=== PATIENT | male | born 1960 | race Caucasian/White ===

== ENCOUNTER 2017-07-13 19:45 | Emergency (ER) | payer BC, SELFPAY ==
[2017-07-13 20:02] VITALS: BP 145/86; PULSE 87; RESP 20; TEMP 37; O2SAT 98; BMI 36.6
--- NOTE | 2017-07-13 20:08 | XR_ITS ---
XR hand LT min 3V COMPARISON: None HISTORY: Left hand pain after injury TECHNIQUE: AP lateral and oblique views FINDINGS: The carpal bones metacarpals and phalanges appear intact with no evidence of recent or old fracture. There is mild generalized soft tissue swelling of the hand. There are no foreign bodies. IMPRESSION: Soft tissue swelling, no fracture seen
--- NOTE | 2017-07-13 20:28 | HMH.EDUTC ---
[facility] [place] Disposition Clinical Impression: Contusion of left hand Qualifiers: Encounter type: initial encounter Qualified Code(s): S60.222A - Contusion of left hand, initial encounter Disposition: Home, Self-Care Condition on Discharge: Good Instructions: DI for Contusion Additional Instructions: Ice, rest, anti-inflammatories Time of Disposition: 20:39 Medical Decision Making - Jadiel Inquiry Pt receiving controlled substance: No Vital Signs: 07/13/17 20:02 07/13/17 20:29 Temperature 98.6 F 98.6 F Temperature Source Tympanic Temporal Artery Scan Pulse Rate [Right Radial] 87 68 Respiratory Rate 20 20 Blood Pressure [Right Arm] 145/86 126/82 Blood Pressure Mean [Right Arm] 105 96 Blood Pressure Position [Right Arm] Sitting 02 Sat by Pulse Oximetry 98 95 Oxygen Delivery Method Room Air Orders (Tests/Meds): ORDERS Category Date Time Status XR hand LT min 3V Stat Exams 07/13/17 20:08 Taken - Radiology Data #1 Image(s): Hand Image Reviewed: Yes I reviewed the patient's radiology image Preliminary Findings: No Fracture Seen [facility] [place] HPI - General Stated complaint: AO 07/13/17 1900, inj to left hand Time Seen by Provider: 07/13/17 20:28 Mode of Arrival: Family Vehicle Source of Information: Patient Limitations: No Limitations Description of Symptoms (Recalled from Triage Doc. by RN): LEFT HAND INJURY AND ABRASION AFTER SMASHING HAND IN A CORN PLANTER. - History of Present Illness Provider Complaint: Patient smashed left hand between corn planter and trailer about 1 hour prior to arrival. Pain is most prominent at 3rd and 4th MCP joints. Has a small abrasion at the 3rd MCP joint. He is UTD on tetanus. Onset (ago): hour(s) (1) Location: left, upper extremity Relieving factors: none Exacerbating factors: none Associated symptoms: denies other symptoms Treatments prior to arrival: none - Related Data Home Medications Medication Instructions Recorded Confirmed Amlodipine Besylate [Amlodipine 10 mg PO DAILY 07/13/17 07/13/17 10mg Tab] Allergies Allergy/AdvReac Type Severity Reaction Status Date / Time No Known Drug Allergies Allergy Unknown Unverified 03/28/17 15:28 [NKDA] [facility] History I have reviewed the patient's past medical history: Yes ROS Obtained: Yes All systems reviewed & no additional complaints - Musculoskeletal Musculoskeletal: Reports as per HPI Physical Exam - General General appearance: alert, in no apparent distress - Head Head exam: atraumatic, normocephalic - Eye Eye exam: Present: PERRL - Respiratory Respiratory exam: Present: normal lung sounds bilaterally, respiratory distress - Cardiovascular Cardiovascular exam: Present: regular rate, normal rhythm - Expanded Upper Extremity Exam Left Hand exam: Present: tenderness (3rd & 4th MCP), swelling (3rd & 4th MCP), abrasion, skin avulsion (3rd MCP) Neuromotor exam: Normal: wrist extension, thumb opposition Vascular exam: Normal: capillary refill, radial pulse, ulnar pulse - Neurological Exam Neurological exam: Present: alert, oriented X3 - Psychiatric Psychiatric exam: Present: normal affect, normal mood - Skin Skin exam: Present: dry
[2017-07-13 20:29] VITALS: BP 126/82; PULSE 68; RESP 20; TEMP 37; O2SAT 95; BMI 36.6
--- NOTE | 2017-07-13 20:34 | ED_ITS ---
[facility] [place] Disposition Clinical Impression: Contusion of left hand Qualifiers: Encounter type: initial encounter Qualified Code(s): S60.222A - Contusion of left hand, initial encounter Disposition: Home, Self-Care Condition on Discharge: Good Instructions: DI for Contusion Additional Instructions: Ice, rest, anti-inflammatories Time of Disposition: 20:39 Medical Decision Making - Jadiel Inquiry Pt receiving controlled substance: No Vital Signs: 07/13/17 20:02 07/13/17 20:29 Temperature 98.6 F 98.6 F Temperature Source Tympanic Temporal Artery Scan Pulse Rate [Right Radial] 87 68 Respiratory Rate 20 20 Blood Pressure [Right Arm] 145/86 126/82 Blood Pressure Mean [Right Arm] 105 96 Blood Pressure Position [Right Arm] Sitting 02 Sat by Pulse Oximetry 98 95 Oxygen Delivery Method Room Air Orders (Tests/Meds): ORDERS Category Date Time Status XR hand LT min 3V Stat Exams 07/13/17 20:08 Taken - Radiology Data #1 Image(s): Hand Image Reviewed: Yes I reviewed the patient's radiology image Preliminary Findings: No Fracture Seen [facility] [place] HPI - General Stated complaint: AO 07/13/17 1900, inj to left hand Time Seen by Provider: 07/13/17 20:28 Mode of Arrival: Family Vehicle Source of Information: Patient Limitations: No Limitations Description of Symptoms (Recalled from Triage Doc. by RN): LEFT HAND INJURY AND ABRASION AFTER SMASHING HAND IN A CORN PLANTER. - History of Present Illness Provider Complaint: Patient smashed left hand between corn planter and trailer about 1 hour prior to arrival. Pain is most prominent at 3rd and 4th MCP joints. Has a small abrasion at the 3rd MCP joint. He is UTD on tetanus. Onset (ago): hour(s) (1) Location: left, upper extremity Relieving factors: none Exacerbating factors: none Associated symptoms: denies other symptoms Treatments prior to arrival: none - Related Data Home Medications Medication Instructions Recorded Confirmed Amlodipine Besylate [Amlodipine 10 mg PO DAILY 07/13/17 07/13/17 10mg Tab] Allergies Allergy/AdvReac Type Severity Reaction Status Date / Time No Known Drug Allergies Allergy Unknown Unverified 03/28/17 15:28 [NKDA] [facility] History I have reviewed the patient's past medical history: Yes ROS Obtained: Yes All systems reviewed & no additional complaints - Musculoskeletal Musculoskeletal: Reports as per HPI Physical Exam - General General appearance: alert, in no apparent distress - Head Head exam: atraumatic, normocephalic - Eye Eye exam: Present: PERRL - Respiratory Respiratory exam: Present: normal lung sounds bilaterally, respiratory distress - Cardiovascular Cardiovascular exam: Present: regular rate, normal rhythm - Expanded Upper Extremity Exam Left Hand exam: Present: tenderness (3rd & 4th MCP), swelling (3rd & 4th MCP), abrasion, skin avulsion (3rd MCP) Neuromotor exam: Normal: wrist extension, thumb opposition Vascular exam: Normal: capillary refill, radial pulse, ulnar pulse - Neurological Exam Neurological exam: Present: alert, oriented X3 - Psychiatric Psychiatric exam: Present: normal affect, normal mood - Skin Skin exam: Present: dry
[2017-07-13 20:49] VITALS: BP 126/82; PULSE 68; RESP 20; TEMP 37; O2SAT 95
== END 2017-07-13 20:50 | disposition home or self-care (01) ==
PROVIDERS: Emergency Provider Physician Assistant
DX: S60.222A Contusion of left hand, initial encounter (principal); W23.0XXA Caught, crushed, jammed, or pinched between moving objects, initial encounter
CPT/HCPCS: 73130; 99201

== ENCOUNTER 2019-11-01 08:00 | Outpatient (RCR) | payer BC, SELFPAY | END 2019-11-01 08:05 | disposition home or self-care (01) | LOC: OT 08:00 | PROVIDERS: Visit Provider Orthopaedic Surgery | DX: S43.421D Sprain of right rotator cuff capsule, subsequent encounter (principal) | CPT/HCPCS: 97014; 97035; 97110; 97166; G0283 ==

== ENCOUNTER 2020-11-15 16:23 | Emergency (ER) | payer BC, SELFPAY ==
[2020-11-15 16:25] VITALS: BP 136/84; PULSE 83; RESP 20; TEMP 37.8; O2SAT 95; BMI 39.2
[2020-11-15 16:53] LABS: Influenza A, PCR Not Detected (NotDetected); Influenza B, PCR Not Detected (NotDetected)
--- NOTE | 2020-11-15 16:54 | HMH.EDUTC ---
[facility] [place] Clinical Impression: COVID-19 virus test result unknown Acute bronchitis Qualifiers: Bronchitis organism: unspecified organism Qualified Code(s): J20.9 - Acute bronchitis, unspecified Disposition: Home, Self-Care Condition on Discharge: Good Instructions: DI for COVID-19 (Suspected or Confirmed ), COVID-19: Protecting Yourself When You're at High Risk, DI for Acute Bronchitis Additional Instructions: covid swab was sent to lab, call later today for results. self isolate until test results are known to be negative Start antibiotic today. Be sure to complete entire prescription even if feeling better Tylenol and ibuprofen as needed for pain or fever Humidifier/vaporizer/hot steamy shower Follow-up with primary care tomorrow. Follow-up immediately in the ER of the [facility] for new or worsening symptoms or no noticeable improvement over the next 48-72 hours. Stop smoking Start steroids today. Helps with inflammation therefore coughing and wheezing. Follow directions on package. Prescriptions: predniSONE [Prednisone 20mg Tab] 20 mg PO BID #10 tab Transmission Status: Pending to [id number] Azithromycin [Zithromax 250mg tab] 250 mg PO DIRECTED #6 tab Transmission Status: Pending to [id number] Referrals: Surjit Hernandez [Primary Care Provider] - Time of Disposition: 16:59 Medical Decision Making - Jadiel Inquiry Pt receiving controlled substance: No Vital Signs: 11/15/20 16:25 Temperature 100.0 F H Temperature Source Oral Pulse Rate [Left Brachial] 83 Respiratory Rate 20 Blood Pressure [Left Arm] 136/84 Blood Pressure Mean [Left Arm] 101 Blood Pressure Source [Left Arm] Automatic Cuff Blood Pressure Position [Left Arm] Sitting 02 Sat by Pulse Oximetry 95 Oxygen Delivery Method Room Air Orders (Tests/Meds): ORDERS Category Date Time Status Rapid PCR Covid and Flu A/B Stat Lab 11/15/20 16:[address] [facility] [place] - General Chief complaint: [facility] Stated complaint: sore throat, cough weakness, sob, fong, aches Time Seen by Provider: 11/15/20 16:55 Mode of Arrival: Ambulatory Source of Information: Patient Limitations: No Limitations Description of Symptoms (Recalled from Triage Doc. by RN): PATIENT C/O CHILLS, BODY ACHES, HEADACHE, AND COUGH SINCE MONDAY NIGHT HEENT Symptoms (Recalled from RN notes): Yes Resp Symptoms (Recalled from RN notes): No Skin Symptoms (Recalled from RN notes): No MS Symptoms (Recalled from RN notes): No Functional Status (Recalled from RN notes): WNL - History of Present Illness Provider Complaint: 60yr old male presents for body aches,fever,sough,soa and congestion. was exposed to someone that returned to work after testing pos for covid - Related Data Home Medications Medication Instructions Recorded Confirmed Amlodipine Besylate [Amlodipine 10 mg PO DAILY 07/13/17 07/13/17 10mg Tab] Previous Rx's Medication Instructions Recorded Azithromycin [Zithromax 250mg 250 mg PO DIRECTED #6 tab 11/15/20 tab] predniSONE [Prednisone 20mg 20 mg PO BID #10 tab 11/15/20 Tab] Allergies Allergy/AdvReac Type Severity Reaction Status Date / Time No Known Drug Allergies Allergy Unknown Unverified 03/28/17 15:28 [NKDA] - Worker's Comp Is this a Worker's Comp case?: No [facility] History - Hepatitis A Screen Drug use history?: No High risk sexual behaviors?: No History of sexually transmitted infection?: No Currently employed?: No Childcare worker?: No Do you have indoor plumbing?: Yes Do you have electricity?: Yes Attestation statement:: This patient has been screened for Hepatitis A risk factors. I have reviewed the patient's past medical history: Yes Laterality Cases: Bilateral: Arthroscopy Knee, Carpal Tunnel Release - Social History Alcohol Intake: never Occupational Status: other ROS Obtained: Yes Systems reviewed as appropriate & no additional complaints
[2020-11-15 17:01] VITALS: BP 136/84; PULSE 83; RESP 20; TEMP 37.8; O2SAT 95
[2020-11-15 17:15] LABS: Coronavirus 19, PCR Detected (NotDetected)
== END 2020-11-15 17:04 | disposition home or self-care (01) ==
PROVIDERS: Emergency Provider Nurse Practitioner Family; PCP Nurse Practitioner Family
DX: U07.1 COVID-19 (principal); J20.9 Acute bronchitis, unspecified
CPT/HCPCS: 99202; G0463; U0003